=== PATIENT | male | born 1970 ===

== ENCOUNTER 2016-11-06 08:53 | Emergency (ER) | payer OTHER ==
[2016-11-06 09:23] VITALS: O2SAT 99
--- NOTE | 2016-11-06 10:42 | C.PDOC ---
History Of Present Illness 46 yr old male presents to the ER with complaints of low back pain for the past 1 week. Patient states the pain has progressively gotten worse and describes it as sharp and worse with movement. Patient states the pain radiates down to the groin area and bilateral thighs. Patient denies direct trauma, injury, nausea, vomiting, abdominal pain, diarrhea, dysuria, hematuria, weakness or numbness. Time Seen by Provider: 11/06/16 10:30 Chief Complaint (Nursing): Back Pain History Per: Patient History/Exam Limitations: no limitations Onset/Duration Of Symptoms: Persistent (1 week) Current Symptoms Are (Timing): Still Present Quality Of Discomfort: Sharp Past Medical History Reviewed: Historical Data, Nursing Documentation, Vital Signs Vital Signs: Last Vital Signs Temp 97.9 F 11/06/16 11:17 Pulse 56 L 11/06/16 11:17 Resp 20 11/06/16 11:17 BP 131/82 11/06/16 11:17 Pulse Ox 99 11/06/16 11:57 Family History: States: No Known Family Hx - Social History Hx Alcohol Use: No Hx Substance Use: No - Immunization History Hx Tetanus Toxoid Vaccination: No Hx Influenza Vaccination: No Hx Pneumococcal Vaccination: No Review Of Systems Except As Marked, All Systems Reviewed And Found Negative. Gastrointestinal: Negative for: Nausea, Vomiting, Abdominal Pain, Diarrhea Genitourinary: Negative for: Dysuria, Hematuria Musculoskeletal: Positive for: Back Pain (Low back pain, radiating to the groin area. ) Neurological: Negative for: Weakness, Numbness Physical Exam - Physical Exam Appears: Well, Non-toxic, No Acute Distress Skin: Normal Color, Warm, Dry Head: Atraumatic, Normacephalic Neck: Normal, Normal ROM, No Midline Cervical Tenderness, Supple Chest: Symmetrical, No Tenderness Cardiovascular: Rhythm Regular, No Murmur Gastrointestinal/Abdominal: Normal Exam, Soft, No Tenderness, No Guarding, No Rebound Back: Straight Leg Raising (Bilateral legs), Other Extremity: Normal ROM, No Swelling Neurological/Psych: Oriented x3, Normal Speech, Normal Motor ED Course And Treatment O2 Sat by Pulse Oximetry: 99 Medical Decision Making Medical Decision Making: PLAN: * Urinalysis * Motrin PO * Tramadol PO * Valium PO Disposition Counseled Patient/Family Regarding: Diagnosis, Need For Followup, Rx Given - Disposition Referrals: [facility] [Outside] Disposition: HOME/ ROUTINE Disposition Time: 12:37 Condition: STABLE Prescriptions: Ibuprofen [Motrin] 600 mg PO TID #15 tab traMADol/Acetaminophen [Ultracet 37.5/325 mg] 1 tab PO TID PRN #20 tab PRN Reason: pain diaZEpam [Valium] 5 mg PO TID #12 tab Instructions: Lumbar Radiculopathy (ED) Forms: Gen Discharge Inst Singaporean, Work Excuse - POA Present On Arrival: None - Clinical Impression Clinical Impression: Low back pain - Scribe Statement The provider has reviewed the documentation as recorded by the Seleneibzuleima Jorgensen Provider Attestation: All medical record entries made by the Seleneibzuleima were at my direction and personally dictated by me. I have reviewed the chart and agree that the record accurately reflects my personal performance of the history, physical exam, medical decision making, and the department course for this patient. I have also personally directed, reviewed, and agree with the discharge instructions and disposition.
[2016-11-06 11:22] LABS: URINE BILIRUBIN NEGATIVE (NEGATIVE); URINE BLOOD NEGATIVE (NEGATIVE); URINE COLOR Yellow (YELLOW); URINE GLUCOSE (UA) NORMAL (Normal); URINE KETONE NEGATIVE (NEGATIVE); URINE LEUKOCYTE ESTERASE NEG Leu/uL (Negative); URINE PROTEIN NEGATIVE (NEGATIVE); URINE UROBILINOGEN NORMAL mg/dL (0.2-1.0); WBC URINE < 1 /hpf (0-5)
[2016-11-06 13:10] VITALS: BP 124/72; PULSE 65; RESP 18; TEMP 98.2
== END 2016-11-06 12:40 | disposition home or self-care (01) ==
LOC: C.ER 08:53
DX: M54.5 Low back pain (principal)